=== PATIENT | male | born 2000 | race Caucasian/White ===

== ENCOUNTER 2021-04-09 13:56 | Emergency (ER) | payer OTHER ==
[~2021-04-09] VITALS: Ht 188 cm; Wt 81.1 kg
[2021-04-09 13:58] VITALS: BP 140/66
--- NOTE | 2021-04-09 14:37 | REP ---
INDICATION: trauma to left little toe. COMPARISON: None. TECHNIQUE: Four views of the left 5th toe are provided. FINDINGS: Four views of the left 5th toe demonstrate normal bones and joints. No fracture or subluxation is seen. No opaque foreign body noted. There is soft tissue swelling visible about the 5th toe. IMPRESSION: No fracture seen.. <Electronically signed by Renard Alcaraz > 04/09/21 [id number]
== END 2021-04-09 15:20 | disposition home or self-care (01) ==
LOC: M ED 13:56
DX: S90.122A Contusion of left lesser toe(s) without damage to nail, initial encounter (principal); S93.505A Unspecified sprain of left lesser toe(s), initial encounter; M79.671 Pain in right foot; W22.8XXA Striking against or struck by other objects, initial encounter; Y92.9 Unspecified place or not applicable; Y93.9 Activity, unspecified; Y99.9 Unspecified external cause status